=== PATIENT | male | born 1955 | race Two or more races ===

== ENCOUNTER 2018-12-20 10:16 | Outpatient (CLI) | payer OTHER ==
[2018-12-25] MEDS ORDERED: TOPROL XL50 M1 PO (16:48)
[2018-12-25] MEDS ORDERED: AVALIDE 300-121 EACH PO (16:48)
== END 2018-12-20 13:20 ==
LOC: LAB 10:16
DX: I10 Essential (primary) hypertension (principal)

== ENCOUNTER 2018-12-28 09:48 | Day surgery (SDC) | payer OTHER ==
[~2018-12-28 09:48] MED LIST: AVALIDE 300-121 EACH PO; TOPROL XL50 M1 PO
[2018-12-28] MEDS ORDERED: TYLENOL EXTRA500 MG PO (12:13)
[2018-12-28] MEDS ORDERED: NEURONTIN300 MG PO (12:13)
[2018-12-28] MEDS ORDERED: TRAMADOL HCL50 MG PO (12:13)
[2018-12-28] MEDS ORDERED: ZOFRAN ODT4 MG PO (12:13)
[2018-12-28] MEDS ORDERED: MIRALAX17 GM PO (12:13)
== END 2018-12-28 15:50 | disposition home or self-care (01) ==
LOC: CIR.AMB 09:48
DX: K40.90 Unilateral inguinal hernia, without obstruction or gangrene, not specified as recurrent (principal); K42.9 Umbilical hernia without obstruction or gangrene